=== PATIENT | male | born 1965 | race Caucasian/White ===

== ENCOUNTER 2017-02-09 12:04 | Emergency (ER) | payer BC, OTHER ==
[2017-02-09 12:17] VITALS: BP 123/99; PULSE 96; TEMP 98.8; BMI 22.4
[2017-02-09] MEDS ORDERED: KETOROLAC TROMETHAMINE 60 MG/2 ML VIAL IM ONE (12:40)
[2017-02-09] MEDS ORDERED: CYCLOBENZAPRINE HCL 5 MG TABLET PO SCH (12:45)
--- NOTE | 2017-02-09 12:45 | PDOC ---
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 There has been progressive pain in the left sacral area, with slight numbness and tingling over the anterior thigh. His symptoms are exacerbated by sitting. However, he is comfortable standing and ambulating. Review of systems: No fever/chills, URI symptoms, sore throat, cough, chest pain , shortness of breath, abdominal pain, nausea, vomiting, diarrhea, visual symptoms. Past medical history: Periodic mild back pain ascribed to muscular strain which usually resolves in several days. No serious injuries or surgery. No other medical problems and no medications Social/family history noncontributory Physical exam: Alert and oriented well-developed well-nourished no acute distress cheerful and cooperative Afebrile, vital signs normal Head atraumatic. PERRLA, ENT clear Neck supple without bruit mass or nodes. No tenderness or deformity of the cervical spine. Good range of motion without pain Chest clear, full breath sounds bilaterally, no chest wall or rib cage tenderness or deformity CV regular without murmur or gallop pulses full and symmetric no JVD or edema Abdomen benign LS spine: There is loss of the normal lumbar lordosis and paravertebral muscle spasm. There is no point tenderness or deformity of the vertebral bodies. There is mild tenderness over the left sacrum without signs of inflammation, erythema , swelling, induration. Straight leg raising is negative. Strength is full and symmetric and there are no sensory or motor deficits are demonstrable, despite complaint of numbness and tingling in the distribution of L4-L5. Impression: Low back strain, nerve irritation/compression. Possible mild herniation of the disc Plan: No sitting, heat, medication, and rest with maintenance of small amounts of ambulation. Recheck orthopedist if no improvement in 4-5 days. Patient fully ambulatory and in no significant pain or discomfort upon discharge to follow-up as directed Past History - Past Medical History Allergies/Adverse Reactions: Allergies Allergy/AdvReac Type Severity Reaction Status Date / Time No Known Allergies Allergy Unverified 02/09/17 12:05 Home Medications: Ambulatory Orders Cyclobenzaprine HCl [Flexeril -] 10 mg PO TID #15 tablet 02/09/17 Diclofenac Sodium 75 mg PO BID #15 tablet. 02/09/17 Diphenhydramine [Benadryl -] 50 mg PO PRN 02/09/17 COPD: No Other medical history: PNEUMONIA - Suicide/Smoking/Psychosocial Hx Smoking History: Never smoked Have you smoked in the past 12 months: No Information on smoking cessation initiated: No Hx Alcohol Use: Yes (SOCIAL) Drug/Substance Use Hx: No Substance Use Type: Alcohol *Physical Exam - Vital Signs Last Vital Signs Temp Pulse Resp BP Pulse Ox 98.8 F 96 H 16 123/99 98 02/09/17 12:05 02/09/17 12:05 02/09/17 12:05 02/09/17 12:05 02/09/17 12:05 *DC/Admit/Observation/Transfer Diagnosis at time of Disposition: Low back strain Qualifiers: Encounter type: initial encounter Qualified Code(s): S39.012A - Strain of muscle, fascia and tendon of lower back, initial encounter - Discharge Dispostion Disposition: HOME Condition at time of disposition: Improved Admit: No - Prescriptions Prescriptions: Cyclobenzaprine HCl [Flexeril -] 10 mg PO TID #15 tablet Diclofenac Sodium 75 mg PO BID #15 tablet.dr - Referrals Referrals: Yadiel Schmid MD [Staff Physician] - 1 week - Patient Instructions Printed Discharge Instructions: DI for Low Back Pain - Post Discharge Activity Forms/Work/School Notes: Back to Work
[2017-02-09] MEDS ORDERED: KETOROLAC TROMETHAMINE 60 MG/2 ML VIAL ONE (13:12)
== END 2017-02-09 13:44 | disposition home or self-care (01) ==
LOC: FER 12:04
PROC: 3E0233Z Introduction of Anti-inflammatory into Muscle, Percutaneous Approach (ICD-10-PCS; principal; 2017-02-09)
DX: S39.012A Strain of muscle, fascia and tendon of lower back, initial encounter (principal); X58.XXXA Exposure to other specified factors, initial encounter; Y93.89 Activity, other specified; Y92.89 Other specified places as the place of occurrence of the external cause; Y99.0 Civilian activity done for income or pay
CPT/HCPCS: 99282-25